=== PATIENT | female | born 1980 | race African-American/Black ===

== ENCOUNTER → 2022-05-14 | Emergency (ER) | payer SELFPAY ==
[~2022-05-14] VITALS: Ht 172.7 cm; Wt 74.8 kg
[2022-05-14 04:28] VITALS: BP 146/95
== END | disposition left against medical advice (07) ==
LOC: ER 04:05
DX: M25.511 Pain in right shoulder (principal); M54.9 Dorsalgia, unspecified; R51.9 Headache, unspecified; Z53.21 Procedure and treatment not carried out due to patient leaving prior to being seen by health care provider
CPT/HCPCS: 70450; 72125